=== PATIENT | male | born 1990 | race Caucasian/White ===

== ENCOUNTER 2020-09-03 10:30 | Outpatient (REF) | payer OTHER, SELFPAY ==
[2020-09-03 14:20] LABS: MANUAL DIFF FLAG NO
[2020-09-03 14:32] LABS: Basophils Percent Auto 0.3 % (0-2); Eosinophils Absolute Auto 0.2 X10*3/uL (0.0-0.4); Eosinophils Percent Auto 1.7 % (0-4); Hematocrit 42.8 % (42-52); Imm Gran Abs Auto 0.02 X10*3/uL (0.00-0.03); Imm Gran Pct Auto 0.2 % (0.0-0.4); Lymphocytes Absolute Auto 2.7 X10*3/uL (1.2-4.9); Lymphocytes Percent Auto 30.3 % (20-40); Mean Corpuscular HGB Conc 32.7 g/dl (31.0-36.0); Mean Corpuscular Hemoglobin 29.5 pg (27.0-33.0); Mean Corpuscular Volume 90.1 fL (80-98); Mean Platelet Volume 10.8 fL (9.4-12.4); Monocytes Absolute Auto 0.4 X10*3/uL (0.1-1.2); Monocytes Percent Auto 4.8 % (2-11); Neutrophils Absolute Auto 5.6 X10*3/uL (2.0-8.3); Neutrophils Percent Auto 62.7 % (45-73); Platelet Count 257 X10*3/uL (160-400); Red Blood Count 4.75 X10*6/uL (4.60-5.80); White Blood Count 8.9 X10*3/uL (4.8-10.8)
[2020-09-03 14:46] LABS: Alanine Aminotransferase 20 U/L (0-40); Albumin Level 4.7 g/dL (3.5-5.0); Alkaline Phosphatase 58 U/L (39-117); Anion Gap 15 (12-20); Aspartate Amino Transferase 15 U/L (5-37); Bilirubin Total 0.7 mg/dL (0.0-1.0); Blood Urea Nitrogen 15 mg/dL (9-16); Calcium 9.4 mg/dL (8.4-10.2); Carbon Dioxide 28 mmol/L (22-29); Chloride 102 mmol/L (96-108); Cholesterol 200 mg/dL; Estimated Glomerular Filt Rate > 60; Glucose Fasting 87 mg/dL (60-99); HDL Cholesterol 53 mg/dL; LDL Cholesterol Calculated 130 mg/dl; Sodium 141 mmol/L (135-145); Total Protein 7.1 g/dL (6.5-8.0); Triglycerides 86 mg/dL
[2020-09-03 15:12] LABS: TSH reflex Free T4 0.35 uIU/mL (0.32-4.0)
== END 2020-09-03 10:31 | disposition home or self-care (01) ==
LOC: HO.HMGCLDS 10:30
PROVIDERS: PCP Nurse Practitioner Family; Visit Provider Nurse Practitioner Family
DX: Z00.00 Encounter for general adult medical examination without abnormal findings (principal)
CPT/HCPCS: 36415; 80053; 80061; 84443; 85025

== ENCOUNTER 2020-09-11 10:40 | Outpatient (REF) | payer OTHER, SELFPAY ==
--- NOTE | ~2020-09-11 | CT_ITS ---
EXAMINATION: CT ABDOMEN AND PELVIS WITH CONTRAST CLINICAL INFORMATION: Left lower quadrant pain COMPARISON: None TECHNIQUE: Multidetector volumetric images were obtained from the superior aspect of the liver through the pubic symphysis following administration 85 mL of Omnipaque 350 intravenous contrast. Sagittal and coronal reformatted images were obtained on the technologist's workstation. Oral contrast: No This CT examination was performed using dose optimization techniques as appropriate, variously including the following: *Automated exposure control *Adjustment of mA and/or kV according to patient size (this includes techniques or standardized protocols for targeted exams where dose is matched to indication/reason for exam; i.e. extremities or head) *Use of iterative reconstruction technique DLP: 263 mGy-cm FINDINGS: LUNG BASES: The lung bases are clear. The heart size is normal. LIVER, GALLBLADDER, AND BILIARY TREE: The liver is normal in size, shape, and attenuation. No focal hepatic lesion or biliary ductal dilatation is present. The gallbladder is unremarkable with no evidence of radiopaque gallstones, gallbladder wall thickening, or obvious pericholecystic inflammatory changes. PANCREAS: Unremarkable. SPLEEN: Unremarkable. ADRENAL GLANDS: Unremarkable. KIDNEYS AND URETERS: The kidneys are normal in size, shape, and attenuation. No hydronephrosis, hydroureter, or calculi seen. No perinephric stranding. BLADDER: Unremarkable. GASTROINTESTINAL TRACT: There is scattered stool and gas seen throughout the colon without any significant distention. The small bowel loops are normal caliber. Appendix is not visualized. ABDOMINAL WALL: No significant hernia is appreciated. LYMPH NODES: Normal. VASCULAR: Unremarkable. PELVIC VISCERA: There is no free fluid. No abnormal pelvic or inguinal lymph nodes. OSSEOUS STRUCTURES: No lytic or sclerotic process seen CT/CT abdomen pelvis w con IMPRESSION: Moderate to significant constipation. No acute intra-abdominal process seen.
[2020-09-11] MEDS: iohexoL 350 MG/ML 100 ML INFUS..BTL IV (11:42)
== END 2020-09-11 10:41 | disposition home or self-care (01) ==
LOC: HO.CT 10:40
PROVIDERS: PCP Family Medicine; Visit Provider Nurse Practitioner Family
DX: R10.32 Left lower quadrant pain (principal); R19.04 Left lower quadrant abdominal swelling, mass and lump
CPT/HCPCS: 74177; Q9967

== ENCOUNTER 2025-05-29 12:54 | Outpatient (AMB) | payer OTHER, SELFPAY ==
[2025-05-29 13:00] VITALS: BP 130/90; PULSE 66; O2SAT 99; BMI 22.4
--- NOTE | 2025-05-29 13:00 | MHC.PC.OV ---
Vital Signs 05/29/25 13:00 Height 5 ft 10 in Weight 156 lb BMI 22.4 BP 130/90 H Pulse 66 Pulse Source Pulse Oximeter Pulse Oximetry (%) 99 Oxygen Delivery Method Room Air Intake Visit Reasons: Annual PE Tag Maker Required: No Accompanied by: Self / Same As Patient Allergies acetaminophen (From VICODIN) Allergy (Unknown, Unverified 05/29/25 13:11) RASH, HIVES codeine (Codeine) Allergy (Unknown, Unverified 05/29/25 13:11) FACIAL SWELLING hydrocodone (From VICODIN) Allergy (Unknown, Unverified 05/29/25 13:11) RASH, HIVES ibuprofen (Ibuprofen) Allergy (Unknown, Unverified 05/29/25 13:11) FACIAL SWELLING Medication List - Last Reconciled 05/29/25 by LYDIA Black trazodone 50 mg PO BEDTIME PRN 30 days Tobacco use date assessed: 05/29/25 Dental Screening Dental Screen Date: 05/29/25 Did you have a dental visit in the last 12 months?: No Did you have a dental problem in the last 6 months where you did not have access to dental care?: No Was dental information given to patient?: Patient has dentist HPI Annual PE HPI Details History of Present Illness The patient is a 35 year old male presenting for management of his mental health conditions. He has a history of bipolar disorder and experiences significant anxiety. He also reports significant insomnia. elevated BP, most likely related to high anxiety currently He currently declines any therapy. He denies suicidal or homicidal ideation, chest pain, shortness of breath, abdominal pain, hematochezia, constipation, and diarrhea. Health Maintenance - Laboratory studies: Patient was advised that he will need to have labs drawn in the near future. Social History - Mental Health: The patient declines seeing a therapist. - declined vaccinations Review of Systems - Psychiatric: Reports anxiety and insomnia. Denies suicidal or homicidal ideation. - Cardiovascular: Denies chest pain. - Respiratory: Denies shortness of breath. - Gastrointestinal: Denies abdominal pain, blood in stool, constipation, or diarrhea. Physical Exam General: Cooperative, healthy appearing, very anxious, no acute distress and well developed Orientation: Patient oriented x3 Limitations: No limitations Head: Normal to inspection Ears: Hearing grossly normal bilaterally Nose: Normal external nose present Face and sinus: Normal facial exam Eyes: Appearance normal, both eyes and all related structures Neck: Normal visual inspection and Yes full ROM Respiratory: Normal respiratory effort and able to speak in complete sentences. Clear to auscultation bilaterally Cardiovascular: Regular rate and rhythm. Normal S1 and S2 GI: Normal to inspection. Soft to palpation and nontender : Declined any kind of genital exam Skin: No rashes or lesions noted Neuro: Patient oriented x3 Extremities: Normal to inspection Results Plan 1. Bipolar Disorder And Anxiety A referral will be placed for the outpatient psychiatry team to assist with medication management. Once medications are initiated and stabilized, I will take over his prescriptions. 2. Insomnia A prescription for trazodone will be sent to help with insomnia. 3. Encounter for general adult medical examination with abnormal findings Z00.01 Discussion Notes I have seen this patient for some time. Given his history of bipolarism and significant anxiety, I am referring him to our outpatient psychiatry team to get him reestablished on medication. I will take over managing those medications once they are determined. The patient declines therapy at this time. To address his insomnia, I am prescribing trazodone. He is aware that he needs to have labs drawn in the near future. Patient Instructions - We will set up a visit for you with our psychiatry team to help manage your bipolar disorder and anxiety with medication. - A prescription for trazodone will be sent to your pharmacy to help you with sleep. - Please get your lab work done in the near future. [facility] Medical History Adrenal adenoma Surgical History History of hernia surgery Family History Mother Hypertension COPD (chronic obstructive pulmonary disease) Maternal Grandmother Diabetes Maternal Grandfather Cancer Social History Alcohol intake: never Patient Tobacco Use Status: Current someday Tobacco user Cigarettes Per Day: 10 Years Smoked: 14 years old Questionnaire PHQ-9 Over the last 2 weeks, how often have you been bothered by any of the following problems? 1. Little interest or pleasure in doing things: more than half the days 2. Feeling down, depressed, or hopeless: nearly every day 3. Trouble falling or staying asleep, or sleeping too much: nearly every day 4. Feeling tired or having little energy: more than half the days 5. Poor appetite or overeating: several days 6. Feeling bad about yourself - or that you are a failure or have let yourself or your family down: more than half the days 7. Trouble concentrating on things, such as reading the newspaper or watching television: several days 8. Moving or speaking so slowly that other people could have noticed. Or the opposite - being so fidgety or restless that you have been moving around a lot more than usual: not at all 9. Thoughts that you would be better off or of hurting yourself in some way: not at all Total score: 14 Depression Screening Interpretation: Positive Depression Screening Done: Yes 18995 - PHQ-9 Billing: Yes Source: Developed by Drs. Shantanu Villatoro, Susan Waters, Logan Pollard and colleagues, with an educational romain from [employer]. [employer] Questionnaire I am a: Patient What is your living situation today?: I have a steady place to live Within the past 12 months, did the food you bought not last and you didn't have the money to get more?: Sometimes True Within the past 12 months, did you worry whether your food would run out before you got money to buy more?: Often true Do you have trouble paying for medicines?: Yes Do you have trouble getting transportation to medical appointments?: Yes Do you have trouble paying your heating and electricity bill?: Yes Do you have trouble taking care of your child, family member or friend?: No Do you have trouble with day-to-day activities such as bathing, preparing meals, shopping, managing finances, etc.?: No Are you currently unemployed and looking for a job?: I choose not to answer this question Are you interested in more education?: No Please select the resources that you would like help with: None Currently or been in a relationship where the following occur: No concerns reported THRIVE Score: 4 AUDIT C Alcohol Use Questionnaire (AUDIT-C) 1. How often do you have a drink containing alcohol?: Never Total Score: 0 DIMA-7 AMB Questionnaire DIMA-7 Date DIMA - 7 assessed: 05/29/25 Feeling nervous, anxious, or on edge: 2 = More than half the days Not being able to stop or control worryin = More than half the days Worrying too much about different things: 3 = Nearly every day Trouble relaxin = Nearly every day Being so restless that it is hard to sit still: 2 = More than half the days Becoming easily annoyed or irritable: 3 = Nearly every day Feeling afraid as if something awful might happen: 1 = Several days Total DIMA-7 score (0-4 normal; 5-9 mild; 10-14 moderate; 15-21 severe): 16 Source: Developed by Drs. Shantanu Villatoro, Susan Waters, Logan Pollard and colleagues, with an educational romain from [employer]. DIMA-7 Assessment Billing DIMA-7 Assessment Tool: DIMA-7 Assessment 33663 (denies any si or hi) Physical exam (Primary Care) Vital Signs: Last Vital Signs Pulse 66 05/29/25 13:00 BP 130/90 H 05/29/25 13:00 Pulse Ox 99 05/29/25 13:00 Oxygen Delivery Method Room Air 05/29/25 13:00 BMI result Body Mass Index 22.4 Tobacco/Smoking Status: Tobacco use Status Tobacco use date assessed 05/29/25 05/29/25 13:10 Patient Tobacco Use Status Current someday Tobacco 05/29/25 13:10 PHQ-9: PHQ-9 Score PHQ-9: Total score 11 05/29/25 13:12 Depression Screening Interpretation: Positive Currently or been in a relationship where the following occur: No concerns reported Coding Level of Care Code Est Pt Level 3 (49191) Est Pt Prev Care 18-39y(93738) Diagnoses Bipolar 1 disorder F31.9 Panic disorder F41.0 Encounter for routine adult physical exam with abnormal findings Z00.01 Insomnia G47.00 Additional Codes PHQ-9 - 81183 - PHQ-9 Billing: Yes ([id number]) DIMA-7 Assessment Billing - DIMA-7 Assessment Tool: DIMA-7 Assessment 59296 ([id number]) Assessment & Plan Assessment & Plan (1) Bipolar 1 disorder: Code(s): F31.9 - Bipolar disorder, unspecified Category: Medical (2) Panic disorder: Code(s): F41.0 - Panic disorder [episodic paroxysmal anxiety] Category: Medical (3) Encounter for routine adult physical exam with abnormal findings: Code(s): Z00.01 - Encounter for general adult medical examination with abnormal findings Category: Medical (4) Insomnia: Code(s): G47.00 - Insomnia, unspecified Category: Medical Plan . Orders: Orders Complete Blood Count Auto Diff Today Z00.00 - Encounter for general adult medical examination without abnormal findings UA CC w/rflx Micro + Cult Today Z00.00 - Encounter for general adult medical examination without abnormal findings Lipid Panel Today Z00.00 - Encounter for general adult medical examination without abnormal findings Comprehensive Bronson. Panel Fast Today Z00.00 - Encounter for general adult medical examination without abnormal findings TSH reflex Free T4 Today Z00.00 - Encounter for general adult medical examination without abnormal findings Referrals Psychiatry Outpatient Consultation Service F31.9 - Bipolar disorder, unspecified, F41.0 - Panic disorder [episodic paroxysmal anxiety] Medications: New trazodone 50 mg PO BEDTIME 30 days PRN 30 tabs 0RF sleep trazodone 50 mg PO BEDTIME PRN 30 tabs 0RF sleep 30 days
== END 2025-05-29 13:33 | disposition home or self-care (01) ==
LOC: HO.HMCC 12:55
PROVIDERS: PCP Nurse Practitioner Family; Visit Provider Nurse Practitioner Family
DX: F31.9 Bipolar disorder, unspecified (principal); F41.0 Panic disorder [episodic paroxysmal anxiety]; Z00.01 Encounter for general adult medical examination with abnormal findings; G47.00 Insomnia, unspecified

== ENCOUNTER → 2025-05-29 12:54 | Outpatient (BNVA) | payer OTHER, SELFPAY | PROVIDERS: PCP Nurse Practitioner Family; Visit Provider Nurse Practitioner Family | DX: Z00.01 Encounter for general adult medical examination with abnormal findings (principal); F31.9 Bipolar disorder, unspecified; F41.0 Panic disorder [episodic paroxysmal anxiety]; G47.00 Insomnia, unspecified; Z13.31 Encounter for screening for depression; Z13.39 Encounter for screening examination for other mental health and behavioral disorders | CPT/HCPCS: 96127; 99212; 99395 ==